=== PATIENT | male | born 1940 | race Caucasian/White ===

== ENCOUNTER 2018-09-26 10:53 | Emergency (ER) | payer MEDICARE ==
--- NOTE | 2018-09-26 11:34 | EDM.PDOC ---
ED HPI GENERAL MEDICAL PROBLEM - General Chief Complaint: Lower Extremity Injury/Pain Stated Complaint: VIA [place] Time Seen by Provider: 09/26/18 11:25 Source of Information: Reports: Patient, EMS History Limitations: Reports: No Limitations - History of Present Illness INITIAL COMMENTS - FREE TEXT/NARRATIVE: 78-year-old male with a history of total knee replacement stumbled and fell a couple days ago and is been having knee pain of the right knee with weightbearing. No significant pain when there is no weightbearing, he slept well and he can move the leg and knee without significant pain. He was still having difficulty walking today so he decided to have it checked. He came into the emergency room by ambulance. Onset: Sudden Duration: Day(s): (2 days ago) Location: Reports: Lower Extremity, Right Associated Symptoms: Reports: No Other Symptoms Right Knee Pain Score (Numeric/FACES): 0 - Related Data Allergies Allergy/AdvReac Type Severity Reaction Status Date / Time No Known Allergies Allergy Verified 09/26/18 10:57 Home Meds: Home Meds FLUoxetine HCl [Prozac] 60 mg PO DAILY 09/26/18 [History] Gabapentin [Neurontin] 100 mg PO BID 09/26/18 [History] Ipratropium [Atrovent HFA] 1 puff INH Q2H PRN 09/26/18 [History] Lisinopril 40 mg PO DAILY 09/26/18 [History] Meloxicam 15 mg PO DAILY 09/26/18 [History] Montelukast [Singulair] 10 mg PO DAILY 09/26/18 [History] Rosuvastatin [Crestor] 10 mg PO DAILY 09/26/18 [History] amLODIPine [Norvasc] 5 mg PO DAILY 09/26/18 [History] traZODone HCl [Trazodone HCl] 50 mg PO BEDTIME 09/26/18 [History] Past Medical History HEENT History: Reports: Impaired Vision Respiratory History: Reports: COPD Hematologic History: Reports: Anemia Oncologic (Cancer) History: Reports: Prostate - Infectious Disease History Infectious Disease History: Reports: Chicken Pox, Measles, Mumps - Past Surgical History Male Surgical History: Reports: Prostatectomy Neurological Surgical History: Reports: Other (See Below) Other Neurological Surgeries/Procedures: brain bleed about a year ago Musculoskeletal Surgical History: Reports: Hip Replacement, Knee Replacement, Shoulder Replacement Social & Family History - Tobacco Use Smoking Status *Q: Former Smoker Used Tobacco, but Quit: Yes Month/Year Tobacco Last Used: many years ago - Caffeine Use Caffeine Use: Reports: Coffee, Soda - Recreational Drug Use Recreational Drug Use: No Review of Systems - Review of Systems Review Of Systems: See Below Constitutional: Denies: Fever Respiratory: Denies: Shortness of Breath Cardiovascular: Denies: Chest Pain GI/Abdominal: Denies: Abdominal Pain Skin: Denies: Bruising, Erythema Neurological: Denies: Paresthesia ED EXAM, GENERAL - Physical Exam Exam: See Below Exam Limited By: No Limitations General Appearance: Alert, No Apparent Distress Head: Atraumatic Respiratory/Chest: No Respiratory Distress Extremities: Other (Exam of the right leg shows no tenderness to palpation of the ankle or groin. Passively he can flex and extend the right knee without significant discomfort. There is well-healed surgical scars, no deformity.) Neurological: Alert, Oriented Course - Vital Signs Last Recorded V/S: Last Vital Signs Temp 96.0 F 09/26/18 11:13 Pulse 68 09/26/18 11:13 Resp 17 09/26/18 11:13 BP 159/68 H 09/26/18 11:13 Pulse Ox 97 09/26/18 11:13 - Re-Assessments/Exams Free Text/Narrative Re-Assessment/Exam: 09/26/18 11:34 A right knee x-ray was obtained. 09/26/18 12:16 Knee x-ray shows significant postsurgical changes but no acute findings such as fracture or effusion. A four-inch [place] wrap was applied to the knee and the patient was discharged back to assisted living. He can recheck next week if not improving satisfactorily, increasing activity is recommended. Departure - Departure Time of Disposition: 12:30 Disposition: Home, Self-Care 01 Condition: Good Clinical Impression: Contusion of knee, right Qualifiers: Encounter type: initial encounter Qualified Code(s): S80.01XA - Contusion of right knee, initial encounter - Discharge Information Instructions: Contusion, [id number] Referrals: PCP,None [Primary Care Provider] - Forms: ED Department Discharge Care Plan Goals: Wrap knee for support and comfort, and increase activity as tolerated. Recheck early next week with orthopedics if not improving satisfactorily.
--- NOTE | 2018-09-26 12:27 | CR ---
Knee 3V Rt CLINICAL HISTORY: Fall, pain FINDINGS: Patient has a total knee arthroplasty. Components appear well seated. Patient also has a fixation plate in the distal femur laterally across the previous femoral shaft fracture. No acute fracture is seen. There is some chronic periosteal reaction Impression: Total knee arthroplasty Fixation plate and lateral femur No acute fracture or dislocation
== END 2018-09-26 12:31 | disposition home or self-care (01) ==
LOC: JP.ED 10:53
DX: S80.01XA Contusion of right knee, initial encounter (principal); Z79.899 Other long term (current) drug therapy; F17.210 Nicotine dependence, cigarettes, uncomplicated; W19.XXXA Unspecified fall, initial encounter
CPT/HCPCS: 73562-26-RT; 73562-RT; 99282; 99283-25

== ENCOUNTER 2021-12-09 16:46 | Emergency (ER) | payer MEDICARE | END 2021-12-09 18:25 | LOC: JP.ED 16:46 | DX: R41.82 Altered mental status, unspecified (principal); R19.7 Diarrhea, unspecified; J44.9 Chronic obstructive pulmonary disease, unspecified; Z88.8 Allergy status to other drugs, medicaments and biological substances; Z79.899 Other long term (current) drug therapy | CPT/HCPCS: 36415; 80048; 85025; 99284 ==

== ENCOUNTER 2022-05-19 08:44 | Emergency (ER) | payer OTHER, MEDICARE ==
[2022-05-19] MEDS ORDERED: Azithromycin 500 MG in Sodium Chloride 0.9% 250 ML IV SCH (09:45)
[2022-05-19] MEDS ORDERED: Lactated Ringers 1,000 ML IV SCH (09:45)
[2022-05-19] MEDS ORDERED: cefTRIAXone 1 GM in Sodium Chloride 0.9% 50 ML IV SCH (09:45)
[2022-05-19 10:19] LABS: ESTIMATED GFR 21 mL/min (>60)
[2022-05-19 11:56] LABS: CORONAVIRUS COVID-19 NAA NEGATIVE (NEGATIVE)
[2022-05-19] MEDS ORDERED: Lactated Ringers 1,000 ML IV ONE (13:57)
== END 2022-05-19 14:10 ==
LOC: JP.ED 08:44
DX: A41.9 Sepsis, unspecified organism (principal); R65.20 Severe sepsis without septic shock; J96.01 Acute respiratory failure with hypoxia; J18.9 Pneumonia, unspecified organism; Z20.822 Contact with and (suspected) exposure to COVID-19
CPT/HCPCS: 0241U; 36415; 71045; 80053; 81001; 83605; 84145; 85025; 86140; 87040; 96365; 96368; 99285; J0456; J0696; J3490; J7050; J7120